=== PATIENT | male | born 1960 | race Caucasian/White ===

== ENCOUNTER 2025-02-10 22:39 | Emergency (ER) | payer OTHER ==
[~2025-02-10] VITALS: Ht 185.4 cm; Wt 79.1 kg
[2025-02-10 22:41] VITALS: BP 116/91; PULSE 110; RESP 16; O2SAT 98
--- NOTE | 2025-02-10 23:33 | Physician Documentation ---
History of Present Illness ~ Chief Complaint: Mental Health Eval Stated Complaint: SEE CHIEF COMPLAINT Time Seen by MD: 23:30 HPI Patient presents to the emergency room for mental health evaluation. Denies SI/HI. Denies history of mental health disorder. Patient has unhelpful with history and just wants to sleep. It was noted that he called prior to arrival asking for a place to sleep for the next 10 hours. He is ambulatory into the emergency room. Medication Reconciliation Allergies: Coded Allergies: No Known Allergies (Unverified , 02/10/25) Review of Systems ROS All review of systems negative except as per HPI Physical Exam Vital Signs: Temperature: 98.0, Source: Temporal, Heart Rate: 110, Respiratory Rate: 16, BP: 116/91, Pulse Oximetry: 98, Weight: 79.100 Oxygen Flow Rate: 0 General Appearance General: Patient is awake, alert, oriented x4 in no acute distress Head: Normocephalic and atraumatic. Eyes: Conjunctival normal. EOMI. PERRL. ENT: Mucous membranes moist. Neck: Supple, trachea is midline. Chest: Clear to auscultation bilaterally without rales, rhonchi, or wheezes. There is no accessory muscle use or retractions. Cardiac: RRR without murmurs, gallops, or rubs. Psych: Uncooperative, poor eye contact, irritable Progress Results/Orders Results/Orders Vital Signs 02/10/25 22:41 Temp 98.0 Pulse 110 Resp 16 B/P (MAP) 116/91 Pulse Ox 98 O2 Flow Rate 0 Medical Decision Making Findings Patient presented to the emergency room for evaluation. Mild tachycardia noted however I do not feel he requires emergent labs or imaging. Departure Disposition: 01 HOME / SELF CARE / HOMELESS Impression: Primary Impression: General medical exam Condition: Stable Discharge Instructions: Medical Screening Exam Referrals: NO PRIMARY CARE PROVIDER (PCP) Signature Scribe Signature: No scribe Attestation: The note accurately reflects work and decisions made by me.Jake Contreras MD 02/10/25 23:32 JAKE CONTRERAS MD Feb 10, 2025 23:33
[2025-02-10 23:45] VITALS: TEMP 98
[2025-02-11] MEDS ORDERED: PROP60CA37 PO (23:10)
[2025-02-11] MEDS ORDERED: INDLA60C PO (23:15)
== END 2025-02-10 23:40 | disposition home or self-care (01) ==
LOC: ER 22:40
DX: Z00.8 Encounter for other general examination (principal)
CPT/HCPCS: 99282

== ENCOUNTER 2025-02-11 22:25 | Emergency (ER) | payer MEDICARE, MEDICAID ==
[~2025-02-11] VITALS: Ht 185.4 cm; Wt 56.6 kg
[2025-02-11 22:45] VITALS: BP 162/82; PULSE 100; RESP 15; TEMP 97.6; O2SAT 98
[2025-02-11] MEDS ORDERED: PROP60CA37 PO (23:10)
[2025-02-11] MEDS ORDERED: INDLA60C PO (23:15)
--- NOTE | 2025-02-11 23:15 | Physician Documentation ---
HPI ~ General Chief Complaint: Medication Refill Stated Complaint: MED REQUEST Time Seen by MD: 23:12 History of Present Illness HPI Comments Patient presents to the emergency room requesting medication refill. He states he got his propranolol locked in his car which got towed. No other complaints Medication Reconciliation Allergies: Coded Allergies: No Known Allergies (Unverified , 02/11/25) Scheduled Propranolol HCl (Inderal LA), 1 CAP PO DAILY, (Reported) Review of Systems ROS All review of systems negative except as per HPI Physical Exam Physical Exam Vital Signs: Temperature: 97.6, Source: Temporal, Heart Rate: 100, Respiratory Rate: 15, BP: 162/82, Pulse Oximetry: 98, Weight: 56.650 Physical Exam General: Patient is awake, alert, oriented x4 in no acute distress Head: Normocephalic and atraumatic. Eyes: Conjunctival normal. EOMI. PERRL. ENT: Mucous membranes moist. Neck: Supple, trachea is midline. Chest: Clear to auscultation bilaterally without rales, rhonchi, or wheezes. There is no accessory muscle use or retractions. Cardiac: RRR without murmurs, gallops, or rubs. Progress Results/Orders Results/Orders Vital Signs 02/11/25 22:45 Temp 97.6 Pulse 100 Resp 15 B/P (MAP) 162/82 Pulse Ox 98 Medical Decision Making Findings Patient presents to the emergency room with medication refill. I will provide him with an additional prescription and one dose here. Departure Disposition: HOME / SELF CARE / HOMELESS Impression: Primary Impression: Medication refill Condition: Stable Discharge Instructions: Medicine Refill at the Emergency Department Referrals: NO PRIMARY CARE PROVIDER (PCP) Signature Scribe Signature: No scribe Attestation: The note accurately reflects work and decisions made by me.Jake Contreras MD 02/11/25 23:14 JAKE CONTRERAS MD Feb 11, 2025 23:14
== END 2025-02-11 23:31 | disposition home or self-care (01) ==
LOC: ER 22:26
DX: Z00.8 Encounter for other general examination (principal); Z76.0 Encounter for issue of repeat prescription
CPT/HCPCS: 99281

== ENCOUNTER 2025-02-12 01:24 | Emergency (ER) | payer MEDICARE, MEDICAID ==
[~2025-02-12] VITALS: Ht 175.3 cm; Wt 56.6 kg
[~2025-02-12 01:24] MED LIST: INDLA60C PO; PROP60CA37 PO
[2025-02-12 01:31] VITALS: BP 162/82; PULSE 100; RESP 15; TEMP 97.6; O2SAT 98
== END 2025-02-12 03:40 | disposition home or self-care (01) ==
LOC: ER 01:26
DX: Z00.8 Encounter for other general examination (principal); Z53.21 Procedure and treatment not carried out due to patient leaving prior to being seen by health care provider

== ENCOUNTER 2025-02-13 01:45 | Emergency (ER) | payer MEDICARE, MEDICAID ==
[~2025-02-13] VITALS: Ht 175.3 cm; Wt 56.6 kg
[2025-02-13 02:00] VITALS: BP 160/98; PULSE 98; RESP 15; TEMP 97.6; O2SAT 100
[2025-02-14] MEDS ORDERED: PROP20TA6 PO (05:30)
== END 2025-02-13 04:22 | disposition left against medical advice (07) ==
LOC: ER 01:45
DX: S05.31XA Ocular laceration without prolapse or loss of intraocular tissue, right eye, initial encounter (principal); Z53.21 Procedure and treatment not carried out due to patient leaving prior to being seen by health care provider; X58.XXXA Exposure to other specified factors, initial encounter; Y93.89 Activity, other specified; Y92.89 Other specified places as the place of occurrence of the external cause; Y99.8 Other external cause status

== ENCOUNTER 2025-02-13 13:41 | Emergency (ER) | payer MEDICARE, MEDICAID ==
[2025-02-14] MEDS ORDERED: PROP20TA6 PO (05:30)
== END 2025-02-13 14:23 | disposition left against medical advice (07) ==
LOC: ER 13:41
DX: Z00.8 Encounter for other general examination (principal); Z53.21 Procedure and treatment not carried out due to patient leaving prior to being seen by health care provider

== ENCOUNTER 2025-02-13 14:30 | Emergency (ER) | payer MEDICARE, MEDICAID ==
[~2025-02-13] VITALS: Ht 185.4 cm; Wt 76.9 kg
[2025-02-13 14:45] VITALS: BP 152/83; PULSE 89; RESP 18; TEMP 97.8; O2SAT 96
[2025-02-14] MEDS ORDERED: PROP20TA6 PO (05:30)
== END 2025-02-13 16:31 | disposition left against medical advice (07) ==
LOC: ER 14:38
DX: E86.0 Dehydration (principal); Z53.21 Procedure and treatment not carried out due to patient leaving prior to being seen by health care provider

== ENCOUNTER 2025-02-13 16:36 | Emergency (ER) | payer MEDICARE, MEDICAID ==
[~2025-02-13] VITALS: Ht 182.9 cm; Wt 77.7 kg
[2025-02-13 16:48] VITALS: BP 137/76; PULSE 77; RESP 16; O2SAT 98
--- NOTE | 2025-02-13 16:49 | Physician Documentation ---
History of Present Illness Stated Complaint: SEE CHIEF HPI Is a 64-year-old gentleman that presents to the emergency department without any specific complaints yelling at staff stating something about [place] his girlfriend and has a funez a video. Patient denies having any medical concerns at this time patient denies having any mental health concerns at this time. Medication Reconciliation Allergies: Coded Allergies: No Known Allergies (Unverified , 02/13/25) Scheduled Propranolol HCl (Inderal LA), 1 CAP PO DAILY, (Reported) Propranolol HCl (Propranolol HCl), 1 CAP PO DAILY Review of Systems ROS As stated above in the HPI, otherwise all systems are reviewed and negative. Physical Exam Physical Exam VITALS: Reviewed and as above. GENERAL: Alert, no apparent distress. HEENT: Normocephalic, atraumatic, PERRL, EOMI, dry mucosa, no erythema RESPIRATORY: Lungs clear, normal breath sounds, no respiratory distress. CHEST: No accessory muscle use, no retractions CV: Regular rate, rhythm, no edema, no murmur, No: JVD GI: Soft, non-tender, bowels sounds present, no rebound, guarding, or rigidity BACK: No CVA tenderness, or swelling MUSCULOSKELETAL No deformities, no edema SKIN: Warm and dry, no rash NEURO: Oriented x4, No motor or sensory deficit PSYCH: Normal mood and affect, no agitation Medical Decision Making Findings Presentation for basic medically that examination unable to perform due to patient's yelling and demeanor. Patient will be discharged disease unwilling to be seen and uncooperative. Departure Disposition: HOME / SELF CARE / HOMELESS Impression: Primary Impression: General medical exam Condition: Stable Additional Instructions: Patient will return if he has a medical need or mental health need. Referrals: NO PRIMARY CARE PROVIDER (PCP) Education Educated: Patient Educated regarding: diagnosis, treatment, need for follow up Signature Scribe Signature: A Attestation: Scribed for Emergency,Department by ALIYA Lopez . 02/13/25 16:49 HEMALATHA MATA Feb 13, 2025 16:49
[2025-02-13 16:51] VITALS: TEMP 97.3
[2025-02-14] MEDS ORDERED: PROP20TA6 PO (05:30)
== END 2025-02-13 16:52 | disposition home or self-care (01) ==
LOC: ER 16:37
DX: Z00.8 Encounter for other general examination (principal)
CPT/HCPCS: 99282

== ENCOUNTER 2025-02-14 05:09 | Emergency (ER) | payer MEDICARE, MEDICAID ==
[~2025-02-14] VITALS: Ht 185.4 cm; Wt 77.2 kg
[2025-02-14] MEDS ORDERED: PROP20TA6 PO (05:30)
--- NOTE | 2025-02-14 05:30 | Physician Documentation ---
HPI ~ General Chief Complaint: Medication Refill Stated Complaint: MED REQ Time Seen by MD: 05:25 History of Present Illness HPI Comments Wants refill of propranolol. Medication Reconciliation Allergies: Coded Allergies: No Known Allergies (Unverified , 02/14/25) Scheduled Propranolol HCl (Inderal LA), 1 CAP PO DAILY, (Reported) Propranolol HCl (Propranolol HCl), 1 CAP PO DAILY Review of Systems All Other Systems at this time: Reviewed and Negative Physical Exam Physical Exam Vital Signs: Temperature: 98.5, Source: Oral, Heart Rate: 90, Respiratory Rate: 20, BP: 164/92, Pulse Oximetry: 100, Weight: 77.200 Oxygen Flow Rate: 0 Physical Exam HEENT: PERRL, moist oral mucosa, EOMI Pulmonary: No respiratory distress MSK: no deformity Skin: w/d/i, no rash Neuro: alert, nonfocal Psych: normal affect Progress Results/Orders Results/Orders Vital Signs 02/14/25 05:15 Temp 98.5 Pulse 90 Resp 20 B/P (MAP) 164/92 Pulse Ox 100 O2 Flow Rate 0 Departure Disposition: 01 HOME / SELF CARE / HOMELESS Impression: Primary Impression: Medication refill Discharge Instructions: Medicine Refill at the Emergency Department Referrals: NO PRIMARY CARE PROVIDER (PCP) Prescriptions Propranolol Hcl (Propranolol Hcl) 20 Mg Tablet 1 TAB PO Q12H for 30 Days, #60 TAB 0 Refills Prov: VENKATA WILDER MD 02/14/25 Education Educated: Patient Educated regarding: diagnosis, treatment, prognosis, need for follow up Signature Scribe Signature: . Attestation: . VENKATA WILDER MD Feb 14, 2025 05:30
[2025-02-14 06:07] VITALS: BP 164/92; PULSE 90; RESP 20; TEMP 98.5; O2SAT 100
[2025-02-15] MEDS ORDERED: TADA5TAB2 PO (04:05)
== END 2025-02-14 06:00 | disposition home or self-care (01) ==
LOC: ER 05:09
DX: Z00.8 Encounter for other general examination (principal); Z76.0 Encounter for issue of repeat prescription
CPT/HCPCS: 99281

== ENCOUNTER 2025-02-15 02:17 | Emergency (ER) | payer MEDICARE, MEDICAID ==
[~2025-02-15] VITALS: Ht 190.5 cm; Wt 77.0 kg
[~2025-02-15 02:17] MED LIST changes: +PROP20TA6 PO
[2025-02-15 02:22] VITALS: BP 174/90; PULSE 88; RESP 16; TEMP 97.8; O2SAT 98
[2025-02-15] MEDS ORDERED: TADA5TAB2 PO (04:05)
--- NOTE | 2025-02-15 04:07 | Physician Documentation ---
HPI ~ General Chief Complaint: See Chief Complaint Stated Complaint: SEE CHIEF COMPLAINT Time Seen by MD: 04:05 History of Present Illness HPI Comments Requesting refill of tadalafil./ Medication Reconciliation Allergies: Coded Allergies: No Known Allergies (Unverified , 02/14/25) Scheduled Propranolol HCl (Inderal LA), 1 CAP PO DAILY, (Reported) Propranolol HCl (Propranolol HCl), 1 CAP PO DAILY Propranolol Hcl (Propranolol Hcl), 1 TAB PO Q12H Tadalafil* (Cialis*), 1 TAB PO DAILY Review of Systems All Other Systems at this time: Reviewed and Negative Physical Exam Physical Exam Vital Signs: RN Vital Signs have been reviewed: Yes, Temperature: 97.8, Heart Rate: 88, Respiratory Rate: 16, BP: 174/90, Pulse Oximetry: 98, Weight: 77.000 Oxygen Flow Rate: 0 Physical Exam HEENT: PERRL, moist oral mucosa, EOMI Pulmonary: No respiratory distress MSK: no deformity Skin: w/d/i, no rash Neuro: alert, nonfocal Psych: normal affect Progress Results/Orders Results/Orders Vital Signs 02/15/25 02:22 Temp 97.8 Pulse 88 Resp 16 B/P (MAP) 174/90 Pulse Ox 98 O2 Flow Rate 0 Medical Decision Making Findings 64 year old male requesting refill of tadalafil. Obliged. Differential Dx:Considerations: Include: Adverse circumstances, Psychosocial, M edication refill, Medication non-compliance Departure Disposition: 01 HOME / SELF CARE / HOMELESS Impression: Primary Impression: Medication refill Condition: Stable Prescriptions Tadalafil* (Cialis*) 5 Mg Tablet 1 TAB PO DAILY for erectile dysfunction for 30 Days, #30 TAB Prov: VENKATA WILDER MD 02/15/25 Education Educated: Patient Educated regarding: diagnosis, treatment, prognosis, need for follow up Signature Scribe Signature: . Attestation: . VENKATA WILDER MD Feb 15, 2025 04:07
== END 2025-02-15 04:30 | disposition home or self-care (01) ==
LOC: ER 02:18
DX: Z00.8 Encounter for other general examination (principal); Z76.0 Encounter for issue of repeat prescription
CPT/HCPCS: 99281

== ENCOUNTER 2025-02-16 17:43 | Emergency (ER) | payer MEDICARE, MEDICAID ==
[~2025-02-16 17:43] MED LIST changes: +TADA5TAB2 PO
== END 2025-02-16 19:30 | disposition left against medical advice (07) ==
LOC: ER 17:44
DX: E46 Unspecified protein-calorie malnutrition (principal); Z53.21 Procedure and treatment not carried out due to patient leaving prior to being seen by health care provider

== ENCOUNTER 2025-02-17 04:39 | Emergency (ER) | payer MEDICARE, MEDICAID ==
--- NOTE | 2025-02-17 04:46 | Physician Documentation ---
History of Present Illness ~ General Stated Complaint: SEE CHIEF COMPLAINT Time Seen by MD: 04:44 History of Present Illness Initial Comments Patient presents to the emergency room for evaluation. He states he is angry at his girlfriend and he has done with her because she does not treat him right. He is visit here in the Emergency many times the past couple of weeks as he has used up all of his time at the [place] and is currently homeless with no place to go. Seen here last night just looking for a place to sleep Medication Reconciliation Allergies: Coded Allergies: No Known Allergies (Unverified , 02/14/25) Scheduled Propranolol HCl (Inderal LA), 1 CAP PO DAILY, (Reported) Propranolol HCl (Propranolol HCl), 1 CAP PO DAILY Propranolol Hcl (Propranolol Hcl), 1 TAB PO Q12H Tadalafil* (Cialis*), 1 TAB PO DAILY Review of Systems ROS All review of systems negative except as per HPI Physical Exam Physical Exam Physical Exam General: Patient is awake, alert, oriented x4 in no acute distress, irritable Head: Normocephalic and atraumatic. Eyes: Conjunctival normal. EOMI. PERRL. ENT: Mucous membranes moist. Neck: Supple, trachea is midline. Chest: Clear to auscultation bilaterally without rales, rhonchi, or wheezes. There is no accessory muscle use or retractions. Cardiac: RRR without murmurs, gallops, or rubs. Medical Decision Making Findings Patient presents to the emergency room at 4:45 a.m. in the morning talking about how angry that has with his girlfriend. I do not believe he is suffering from a medical emergency. I do not feel emergent labs or imaging is necessary Departure Disposition: 01 HOME / SELF CARE / HOMELESS Impression: Primary Impression: General medical exam Condition: Stable Discharge Instructions: General Discharge Instructions Referrals: NO PRIMARY CARE PROVIDER (PCP) Signature Scribe Signature: No scribe Attestation: The note accurately reflects work and decisions made by me.Jake Contreras MD 02/17/25 04:46 JAKE CONTRERAS MD Feb 17, 2025 04:46
== END 2025-02-17 04:54 | disposition left against medical advice (07) ==
LOC: ER 04:40
DX: Z00.00 Encounter for general adult medical examination without abnormal findings (principal); Z59.00 Homelessness unspecified; Z79.899 Other long term (current) drug therapy
CPT/HCPCS: 99282